=== PATIENT | male | born 1975 | race American Indian/Alaskan Native ===

== ENCOUNTER 2023-07-28 07:59 | Day surgery (SDC) | payer MEDICAID ==
[~2023-07-28] VITALS: Ht 175.3 cm; Wt 69.9 kg
[2023-07-28] MEDS ORDERED: MEPERIDINE 100 MG INJ. 100 MG/ML VIAL ONE ×2 (08:23→09:13)
[2023-07-28] MEDS ORDERED: MIDAZOLAM HCL 5 MG/5 ML VIAL ONE (08:24)
[2023-07-28 09:36] VITALS: O2SAT 100
[2023-07-28 14:15] VITALS: BP_SYST 132; PULSE 81; RESP 16
== END 2023-07-28 10:10 | disposition home or self-care (01) ==
LOC: SDS 07:59 → SMU 07:59 → SDS 10:10
PROVIDERS: ATTEND Student in an Organized Health Care Education/Training Program
DX: K21.9 Gastro-esophageal reflux disease without esophagitis (principal); K29.50 Unspecified chronic gastritis without bleeding; E78.5 Hyperlipidemia, unspecified; Z79.899 Other long term (current) drug therapy
CPT/HCPCS: 43239; 88305; 88312; 88313; 99152; G0378; J2250; J2175